=== PATIENT | male | born 1960 | race Caucasian/White ===

== ENCOUNTER 2019-11-15 22:25 | Emergency (ER) | payer OTHER, SELFPAY ==
--- NOTE | ~2019-11-15 | CT_ITS ---
EXAMINATION: CT brain wo con DATE: 11/15/2019 23:10 INDICATION: Fall from stage while intoxicated presenting with altered mental status. TECHNIQUE: Computed tomography (CT) of the head was performed without intravenous contrast. Sagittal and coronal reconstructions were performed. The mA was adjusted according to patient size. Iterative reconstruction technique was employed. The dose-length product was 681.00 mGy-cm. COMPARISON: None FINDINGS: Small left parietal scalp hematoma. No calvarial fracture. No acute intracranial hemorrhage, acute in farction or abnormal extra axial fluid collection. Ventricles are normal and symmetric. No mass/mass effect. The orbits, paranasal sinuses and mastoid air cells are normal. IMPRESSION: 1. Normal brain. No fracture or acute intracranial process. Reviewed, dictated and finalized at location A. 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
--- NOTE | ~2019-11-15 | CT_ITS ---
EXAMINATION: CT cervical spine wo con DATE: 11/15/2019 23:11 INDICATION: Neck pain TECHNIQUE: Computed tomography (CT) of the cervical spine was performed without intravenous contrast. The dose-length product (DLP) was 450.43 mGy-cm. Automated exposure control and iterative reconstruc tion technique were employed. COMPARISON: None FINDINGS: There are 2 mm of retrolisthesis of C5 on C6 and C6 on C7. There is moderate loss of interv ertebral disc space height at C5-6 and C6-7. The vertebral body heights are normal. There is no fract ure. The odontoid is intact. The prevertebral soft tissues are normal. Small degenerative osteophytes project from the anterior endplates of multiple vertebral bodies. There is posterior fusion at C3-4. There is moderate facet and uncovertebral joint osteoarthritis. IMPRESSION: 1. Moderate cervical spondylosis without acute findings. Reviewed, dictated and finalized at location A. 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
--- NOTE | ~2019-11-15 | XR_ITS ---
EXAMINATION: XR chest 1V portable DATE: 11/15/2019 23:14 INDICATION: Confusion post fall from stage while intoxicated. TECHNIQUE: frontal view of the chest was obtained. COMPARISON: None FINDINGS: The lungs are clear with no focal airspace opacities, pulmonary edema, pleural effusion or pneumothor ax. The cardiomediastinal silhouette is normal. Mild upper lumbar spondylosis. IMPRESSION: 1. No acute cardiopulmonary disease. Reviewed, dictated and finalized at location A. [employer]
[2019-11-15 22:25] VITALS: BP 125/85; PULSE 85; RESP 18; TEMP 37.1; O2SAT 96
--- NOTE | 2019-11-15 22:40 | ECG_ITS ---
Measurements Intervals [place] Rate: 71 P: 53 AK: 185 QRS: 14 QRSD: 98 T: 19 QT: 355 QTc: 386 Interpretive Statements SINUS RHYTHM WITH SINUS ARRHYTHMIA NORMAL ECG Electronically Signed On 11-16-2019 7:38:17 MARKETING AND OUTREACH COORDINATOR by Avtar Martinez D.O.
--- NOTE | 2019-11-15 23:01 | ED.FALL ---
HPI - Fall General Chief Complaint: Fall Stated Complaint: fell from stage/ AMS Time Seen by Provider: 11/15/19 22:34 Source: EMS Mode of arrival: ambulatory Limitations: intoxication History of Present Illness HPI Narrative: 58 yo male who presents via EMS for evaluation of fall and possible intoxication. 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 She states his bandmates reported that he seems off while playing drums at beginning of set at 9. Patient states he has 2 drinks of whiskey tonight that were about 16 oz. Nursing staff states the band reported he also drank a couple of beers and shot of tequila. Patient denies any complaints. He states he is fine but his sister is concerned about his confusion. complaint: fall Related Data Allergies Allergy/AdvReac Type Severity Reaction Status Date / Time No Known Allergies Allergy Verified 11/15/19 22:57 Review of Systems Constitutional: Constitutional: Denies chills and Denies fever(s) Eyes: Eyes: Denies no additional eye complaints Cardiovascular: Cardiovascular: Denies chest pain and Denies radiating jaw, neck or arm pain Respiratory: Respiratory: Denies cough and Denies dyspnea Gastrointestinal: Gastrointestinal: Denies abdominal pain, Denies nausea and Denies vomiting Neurologic: Denies dizziness, Denies headache(s), Denies numbness and Denies weakness PMFSH Social History Social History (Updated 11/15/19 @ 23:09 by Melina Colindres MD) Smoking status: Never smoker Comments Family history includes cardiac disease Exam Narrative: Exam Narrative: GENERAL: Well-appearing, well-nourished, and in no acute distress. HEAD: Normocephalic, atraumatic EYES: PERRLA and EOMI, conjunctiva clear without discharge THROAT:Mucous membranes moist, Oropharynx normal without erythema, exudate, peritonsillar swelling or fluctuance NECK: Supple, without lymphadenopathy or mass RESPIRATORY: No respiratory distress, Airway patent, Respirations non-labored, Clear to auscultation without rales, rhonchi or wheeze HEART: Regular rate and rhythm. No murmur heard. Normal peripheral pulses. ABDOMEN: Soft, nontender, nondistended, normal active bowel sounds. No masses. No rebound or guarding, No organomegaly. EXTREMITIES: No edema, normal strength with full range of motion. SKIN: Warm, dry, normal color without rash NEURO: Alert and oriented x3. CN 2-12 grossly intact. No focal deficits. slurred speech appears intoxicated PSYCH: Normal mood and affect. Course Reevaluation(s) Reevaluation #1: Patient's is at bedside. I have discussed test showing elevated ETOH. She states she feels comfortable taking patient home. Date: 11/16/19 Time: 00:48 Vital Signs Vital signs: Vital Signs Temperature 98.7 F 11/15/19 22:25 Pulse Rate 85 11/15/19 22:25 Respiratory Rate 18 11/15/19 22:25 Blood Pressure 125/85 11/15/19 22:25 Pulse Oximetry 96 11/15/19 22:25 Temperature 98.7 F 11/15/19 22:25 Pulse Rate 81 11/16/19 00:22 Respiratory Rate 13 11/16/19 00:22 Blood Pressure 116/80 11/16/19 00:22 Pulse Oximetry 94 11/16/19 00:22 MDM - Fall Lab Data Attestation: I reviewed the patient's lab results. Result diagrams: 11/15/19 23:25 11/15/19 23:25 Labs: Lab Results 11/15/19 11/15/19 11/15/19 Range/Units 23:17 23:25 23:25 WBC 10.3 H (4.5-10.0) K/mm3 RBC 4.57 L (4.6-6.20) M/mm3 Hgb 14.4 (14.0-18.0) g/dL Hct 41.2 L (42.0-52.0) % MCV 90.2 (80-100) fl MCH 31.5 (26-34) pg MCHC 35.0 (32-36) g/dl RDW 12.1 (11.5-14.5) % Plt Count 208 (150-375) k/mm3 MPV 8.9 (7.4-10.4) fl Immature Gran % (Auto) 0.4 (0-0.5) % Neut % (Auto) 87.8 H (45.5-73.1) % Lymph % (Auto) 4.8 L (18.3-44.2) % [place] % (Auto) 5.8 (2.6-8.5) % Eos % (Auto) 0.9 (0-4.4) % Baso % (Auto) 0.3 (0.2-1.2) % Ly
[2019-11-15 23:20] LABS: Glucose Point of Care 135 (65-105)
[2019-11-15] MEDS: ONDANSETRON INJ 4 MG/2 ML VIAL IV PUSH (23:25)
--- NOTE | 2019-11-15 23:30 | PC.NURSE ---
pt told we need urine sample. pt states well are you going to give me something to drink? this rn informs pt that we are giving him fluids that will help him urinate and that he can't have anything to drink considering hes nauseated and because we don't have tests back. pt states he understands. this rn educated pt on a straight cath. pt refuses at this time. urinal placed at bedside and call light given to pt. pt instructed to use call light when hes given us a sample.
[2019-11-15 23:33] LABS: Basophils Percent Auto 0.3 % (0.2-1.2); Eosinophils Absolute Auto 0.1 K/mm3 (0-0.3); Eosinophils Percent Auto 0.9 % (0-4.4); Hematocrit 41.2 % (42.0-52.0); Hemoglobin 14.4 g/dL (14.0-18.0); Immature Granulocyte Absolute 0.04 K/mm3 (0.00-0.031); Immature Granulocyte Percent A 0.4 % (0-0.5); Lymphocytes Absolute Auto 0.49 K/mm3 (0.9-3.2); Lymphocytes Percent Auto 4.8 % (18.3-44.2); Mean Corpuscular Hemoglobin 31.5 pg (26-34); Mean Corpuscular Volume 90.2 fl (80-100); Mean Platelet Volume 8.9 fl (7.4-10.4); Monocytes Absolute Auto 0.6 K/mm3 (0.1-0.6); Monocytes Percent Auto 5.8 % (2.6-8.5); Neutrophils Percent Auto 87.8 % (45.5-73.1); Platelet Count Result 208 k/mm3 (150-375); Red Blood Count 4.57 M/mm3 (4.6-6.20); Red Cell Distribution Width 12.1 % (11.5-14.5); White Blood Count 10.3 K/mm3 (4.5-10.0)
[2019-11-15 23:34] VITALS: BP 113/78; PULSE 69; RESP 17; O2SAT 94
--- NOTE | 2019-11-15 23:34 | PC.NURSE ---
assumed care of pt at this time. received report from becki puentes
[2019-11-15 23:44] LABS: Ammonia < 9 umol/L (9-30); Ethanol 231 mg/dL (<10)
[2019-11-15 23:46] LABS: Alanine Aminotransferase 42 U/L (4-50); Albumin Level 4.3 g/dL (3.5-5.1); Alkaline Phosphatase 58 U/L (38-126); Aspartate Amino Transferase 33 U/L (17-59); Bilirubin,Total 0.2 mg/dL (0.2-1.3); Blood Urea Nitrogen 17 mg/dL (9-20); Calcium 8.8 mg/dL (8.4-10.2); Carbon Dioxide 22 mmol/L (22-30); Chloride 104 mmol/L (98-107); Estimated CRCL calculation 80 ml/min; Estimated Glomerular Filt Rate > 60; Glucose 137 mg/dL (75-110); Potassium 3.4 mmol/L (3.4-5.0); Sodium 140 mmol/L (137-145)
[2019-11-15 23:50] LABS: INR 0.9; Partial Thromboplastin Time 22.9 SECONDS (22.3-36.8); Prothrombin Time 11.8 Seconds (11.1-14.7)
--- NOTE | 2019-11-16 00:17 | PC.NURSE ---
pt attempting to urinate at this time.
[2019-11-16 00:22] VITALS: BP 116/80; PULSE 81; RESP 13; O2SAT 94
--- NOTE | 2019-11-16 00:25 | PC.NURSE ---
urine drug screen being sent down on pt at this time.
[2019-11-16 00:31] VITALS: BP 113/76; PULSE 81; RESP 13; O2SAT 95
[2019-11-16 00:49] LABS: Amphetamine Screen Urine Negative (Negative); Barbiturate Screen Urine Negative (Negative); Benzodiazepines Screen Urine Negative (Negative); Cannabinoid Screen Urine Negative (Negative); Cocaine Screen Urine Negative (Negative); Methadone Screen Urine Negative (Negative); Opiate Screen Urine Positive (Negative); Phencyclidine Screen Urine Negative (Negative)
[2019-11-16 01:16] VITALS: BP 113/77; PULSE 68; RESP 17; O2SAT 98
[2019-11-16 01:43] VITALS: BP 122/81; PULSE 64; RESP 18; TEMP 37.2; O2SAT 100
--- NOTE | 2019-11-27 06:59 | PC.NURSE ---
LATE ENTRY This note is being entered to document information to the patient's record. The following information was omitted on [11/27/2019], by [deloris alfaro]. pt thiamine stopp at 0100 prior to d/c
== END 2019-11-16 01:46 | disposition home or self-care (01) ==
PROVIDERS: Emergency Provider General Practice
DX: F10.929 Alcohol use, unspecified with intoxication, unspecified (principal); Y90.7 Blood alcohol level of 200-239 mg/100 ml
CPT/HCPCS: 36415; 70450; 71045; 72125; 80053; 80307; 82140; 83735; 85025; 85610; 85730; 93005; 96365; 96366; 96375; 99284; J2405; J3411; J3475; J7030